=== PATIENT | male | born 1955 | race Two or more races ===

== ENCOUNTER 2020-07-09 05:01 | Emergency (ER) | payer OTHER ==
[~2020-07-09] VITALS: Ht 172.7 cm; Wt 96.2 kg
[~2020-07-09 05:01] MED LIST: CARVEDILOL25 MG; CIPRO500 MG PO; ECOTRIN81 MG; HYDROCHLOROTHIA25 MG; IRBESARTAN300 MG; ISOSORBIDE MONO30 M1; LOSARTAN POTAS100 MG; MACRODANTIN100 MG; NABUMETONE500 MG; OMEPRAZOLE MAGNESIUM; TAMS0.4C PO
[2020-07-09] MEDS ORDERED: PROTONIX40 MG (05:21)
== END 2020-07-09 11:28 | disposition home or self-care (01) ==
LOC: ER 05:01 → CPU-OBS 05:03 → ER 05:03
DX: R07.89 Other chest pain (principal); I10 Essential (primary) hypertension